=== PATIENT | male | born 1965 | race Caucasian/White ===

== ENCOUNTER 2016-07-09 10:22 | Inpatient (IN) | payer BC ==
[2016-06-18 13:42] VITALS: BMI 25.0
--- NOTE | 2016-06-18 14:19 | PAT Medication Instructions ---
Service Date Jun 18, 2016. Current Home Medication List Acetaminophen (Tylenol), 1,000 MG PO BID Amlodipine (Norvasc), 5 MG PO QAM Fluocinonide Emulsified Base (Fluocinonide-E), 1 DOSE TOP PRN Poyzigqdutkkl-Jbyszzscod-Qnyrb (Marisa [place] Plus Severe 10-12.5-20-650 mg), 1 DOSE PO HS PRN for insulation installer Instructions For Your Scheduled Surgery - Hold the following medications 24 hours prior to surgery: Fluocinonide Emulsified Base (Fluocinonide-E), 1 DOSE TOP PRN - Take the following medications the morning of surgery with a sip of water: Amlodipine (Norvasc), 5 MG PO QAM Acetaminophen (Tylenol), 1,000 MG PO BID - Take the following medications as scheduled the night before surgery: Junmjysbbnajb-Qnfaiewgmv-Dolme (Marisa [place] Plus Severe 10-12.5-20-650 mg), 1 DOSE PO HS PRN for RN Acetaminophen (Tylenol), 1,000 MG PO BID If you have any questions please call us at [phone] or [phone] Jesika ) or [phone]
--- NOTE | 2016-06-18 15:04 | DIAGNOSTIC IMAGING REPORT ---
TWO VIEW CHEST CLINICAL HISTORY: Preoperative examination. FINDINGS: PA and lateral chest radiographs are obtained. No prior studies are available for comparison at the time of dictation. The cardiomediastinal silhouette is unremarkable. The lungs and pleural spaces are clear. There is no pneumothorax. The bony thorax appears intact. IMPRESSION: No active disease in the chest. Electronically signed by: Chucky Ribera M.D. 06/18/2016 3:03 PM Dictated Date/Time: 06/18/2016 3:02 PM
[2016-06-18 15:18] LABS: BASO % 0.6 %; BASO ABS # 0.05 K/uL (0-0.2); COMPLETE YES; EOS % 3.5 %; HEMATOCRIT 43.6 % (42-52); IG% 0.2 %; LYMPH % 22.7 %; LYMPH ABS # 1.86 K/uL (1.2-3.4); MEAN CORPUSCULAR HEMOGLOBIN 31.6 pg (25-34); MEAN CORPUSCULAR HGB CONC 33.9 g/dl (32-36); MEAN PLATELET VOLUME 9.7 fL (7.4-10.4); MONO % 10.3 %; NEUT % 62.7 %; PLATELET COUNT 251 K/uL (130-400); RED BLOOD COUNT 4.69 M/uL (4.7-6.1); WHITE BLOOD COUNT 8.19 K/uL (4.8-10.8)
[2016-06-18 15:25] LABS: INR 0.9 (0.9-1.1); PARTIAL THROMBOPLASTIN RATIO 1.2
[2016-06-18 15:27] LABS: URINE APPEARANCE CLEAR (CLEAR); URINE BILIRUBIN NEG (NEG); URINE COLOR YELLOW; URINE EPITHELIAL CELL AUTO 0-5 /lpf (0-5); URINE NITRITE NEG (NEG); URINE SPECIFIC GRAVITY 1.006 (1.000-1.030); UROBILINOGEN NEG (NEG)
[2016-06-18 15:30] LABS: MANUAL MICROSCOPIC REQUIRED? NO; REVIEW REQ? NO
[2016-06-18 15:34] LABS: BUN/CREATININE RATIO 20.4 (10-20); CALCIUM 9.5 mg/dl (8.5-10.1); CREATININE 0.94 mg/dl (0.60-1.40); POTASSIUM 4.3 mmol/L (3.5-5.1)
[2016-06-19 05:52] LABS: ESTIMATED AVERAGE GLUCOSE 117 mg/dl; HA1C FLAG Normal (Normal)
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
[2016-07-09] VITALS (7 sets, daily range): BP systolic 107–151; BP diastolic 65–98; PULSE 59–72; TEMP 36.6–36.9; O2SAT 94–99; Ht 170.2 cm; Wt 74.6 kg
[~2016-07-09] VITALS: Ht 170.2 cm; Wt 74.6 kg
[2016-07-09] MEDS: TRANEXAMIC ACID INJ 1,000 MG in SODIUM CHLORIDE 0.9% 100ML 100 ML IV SCH ×2 (06:30→12:23)
--- NOTE | 2016-07-09 08:14 | History & Physical Bridge Note ---
H&P Re-Evaluation Bridge Note: I have examined the patient, reviewed the History & Physical and in the interval since the performance of the History & Physical I have noted the following changes of clinical significance: No changes noted
[~2016-07-09 10:22] MED LIST: ACET-1256 PO; ACETAMINOPHEN 500 MG TAB PO SCH; AMLO-110 PO; BACITRACIN 50000 UNIT VIAL ONE; BUPIVACAINE 0.5 % 5 MG/1 ML PF 10ML VIAL ONE; CEFAZOLIN 1000MG/55 ML D5W 55 ML IV SCH; CeleBREX 200 MG CAP PO SCH; DEXAMETHASONE 4 MG TAB PO SCH; FAMOTIDINE 20 MG TAB PO SCH; FLUOCRE TOP; GABAPENTIN 300 MG CAP PO SCH; LACTATED RINGER'S 1000ML 1,000 ML IV SCH; LACTATED RINGER'S 1000ML 500 ML IV ONE; LACTATED RINGER'S 1000ML IV SCH; ORTHO JOINT ANESTHETIC ONE; PHEN1POW90 PO; POVIDONE-IODINE OP SOLN 30 ML BTL ONE; ROPIVACAINE 5MG/ML 30 ML 150 MG, BUPIVACAINE/EPINEPHR 0.5% MPF 30 ML, KETOROLAC TROMETH... INFIL SCH
[2016-07-09] MEDS ORDERED: MIDAZOLAM HCL 1 MG/ML 2ML VIAL ONE (11:21)
[2016-07-09] MEDS ORDERED: ATROPINE SULFATE 0.1 MG/ML 5ML SYR IV PRN (12:30)
[2016-07-09] MEDS ORDERED: EpHEDrine SULFATE INJ 50 MG/ML AMP IV PRN (12:30)
[2016-07-09] MEDS ORDERED: ONDANSETRON INJ 2 MG/ML 2 ML VIAL IV PRN ×2 (12:30→15:30)
[2016-07-09] MEDS ORDERED: FENTANYL CITRATE INJ 50 MCG/1 ML 2 ML VIAL IV PRN (12:30)
[2016-07-09] MEDS ORDERED: PROPOFOL IV EMULSION 10 MG/ML 20 ML VIAL IV ONE (14:36)
--- NOTE | 2016-07-09 14:43 | [facility] Post Operative Brief Note ---
Immediate Operative Summary Operative Date Jul 09, 2016. Pre-Operative Diagnosis Degenerative joint disease left knee with femoral deformity due to fracture Post-Operative Diagnosis Same Procedure(s) Performed Total Left Knee Arthroplasty --cemented Surgeon Dr Mayo Road Driver Surgeon(s) Gt Rios PA-C Estimated Blood Loss 10ML Findings severe djd lt knee Specimens A. Left knee bone and tissue Complication(s) None Disposition Recovery Room / PACU
--- NOTE | 2016-07-09 15:10 | OPERATIVE REPORT ---
DATE OF OPERATION: 07/09/2016 PREOPERATIVE DIAGNOSIS: Severe degenerative joint disease, left knee with femoral deformity from previous fracture. POSTOPERATIVE DIAGNOSIS: Same. PROCEDURE: Left total knee arthroplasty utilizing Journey II patient matched total knee arthroplasty size 4 femur, 5 tibia, 12 poly, 32 oval patella. SURGEON: Dr. Mayo. ADMINISTRATION SPECIALIST: Gt Rios PA-C who was necessary for prepping, draping, retraction, wound closure of deep fascia, subQ and skin and was necessary for the case. ESTIMATED BLOOD LOSS: 10 mL. TOURNIQUET TIME: 50 minutes. COMPLICATIONS: None. HISTORY OF PRESENT ILLNESS: The patient is a very pleasant 50-year-old white male with complaints of ongoing pain attributed to his left knee. He had a previous femur fracture with deformity and has gone on to develop severe end-stage DJD of his knee and presents for left total knee arthroplasty. OPERATION AND FINDINGS: PROCEDURE: The patient was properly prepped and draped in supine position for total knee arthroplasty after identifying the appropriate surgical site. An anterior midline incision was made through the subcutaneous tissues down to the region of the extensor mechanism. A medial parapatellar incision was subsequently made. Meticulous hemostasis was obtained and performed at all times. The patella having been subluxed lateralward, medial and lateral meniscal remnants were excised. The patellar cut was then initially made and was sized to the appropriate size. After subluxing the tibia forward the appropriate meniscal fragments having been removed the distal femur was then cut first utilizing a Khan \T\ Nephew block. The distal femoral cuts and chamfer cuts were all made under direct visualization and the proximal tibial osteotomy cut was also made utilizing Khan \T\ Nephew blocks and checked with an extramedullary guide. The appropriate trial components on the femur and tibia were placed. Appropriate trial spacers were used to check flexion and extension gaps. With flexion and extension gaps being equal, the components were then subsequently after thorough irrigation and debridement lavage components were then subsequently cemented in the following order: femur, tibia and patella. Exparel was used for intraoperative anesthesia, the medial parapatellar incision was closed utilizing #1 Vicryl, subQ was closed with 2-0 Vicryl, skin was closed with skin clips. A sterile compression dressing was placed. The patient was taken to recovery room in stable condition. Due to the complex nature of the procedure, the entire surgery was performed with the operational assistance of Gt Riso PA-C. The dental office assistant, under direct supervision, was involved in the actual performance of all aspects of the surgical procedure including hemostasis, tissue retraction and incision, instrument management, patient positioning, and wound closure. I attest to the content of the Intraoperative Record and any orders documented therein. Any exceptio ns are noted below.
[2016-07-09] MEDS ORDERED: DiphenhydrAMINE HCL 50 MG/ML VIAL IV PRN (15:30)
[2016-07-09] MEDS ORDERED: ZOLPIDEM TARTRATE 5 MG TAB PO PRN (15:30)
[2016-07-09] MEDS ORDERED: MAGNESIUM HYDROXIDE SUSP 30 ML UDC PO PRN (15:30)
[2016-07-09] MEDS ORDERED: TAMSULOSIN HCL 0.4 MG CAP PO PRN (15:30)
[2016-07-09] MEDS ORDERED: BISACODYL 10 MG SUPP PR PRN (15:30)
[2016-07-09] MEDS ORDERED: ALUMINUM/MAGNESIUM/SIMETH (MAALOX MAX) 30 ML UDC PO PRN (15:30)
[2016-07-09] MEDS ORDERED: MoRPHine SULFATE 2 MG/ML CARP IV PRN (15:30)
--- NOTE | 2016-07-09 16:02 | DIAGNOSTIC IMAGING REPORT ---
TWO VIEWS LEFT KNEE CLINICAL HISTORY: Postoperative examination. FINDINGS: AP and crosstable lateral portable views of the left knee are obtained. A left knee arthroplasty is in near anatomic alignment. There has been undersurface remodeling of the patella. No acute fracture is seen. There are expected postoperative changes around the knee including skin clips, a surgical drain, soft tissue edema, and subcutaneous gas. Chronic posttraumatic deformity and angulation is noted in the distal femoral shaft. IMPRESSION: Expected postoperative changes status post left knee arthroplasty. No acute fracture is seen. Electronically signed by: Chucky Ribera M.D. 07/09/2016 4:01 PM Dictated Date/Time: 07/09/2016 4:00 PM
[2016-07-09] MEDS ORDERED: MoRPHine SULFATE 4 MG/ML 1 ML CARP\\VIAL IV PRN (16:15)
[2016-07-09] MEDS ORDERED: MoRPHine SULFATE 10 MG/ML CARP/VIAL IV PRN (16:15)
--- NOTE | 2016-07-09 16:51 | Anesthesiology Progress Note ---
Anesthesia Post Op Note Date & Time Jul 09, 2016 at 16:50 Vital Signs Pain Intensity: 0 Vital Signs Past 12 Hours Date Time Temp Pulse Resp B/P Pulse Ox O2 Delivery O2 Flow Rate FiO2 07/09/16 16:45 110/76 07/09/16 16:43 66 23 98 07/09/16 16:43 65 23 07/09/16 16:40 102/79 07/09/16 16:38 69 18 98 07/09/16 16:38 69 18 07/09/16 16:35 111/81 07/09/16 16:33 79 24 98 07/09/16 16:33 77 24 07/09/16 16:30 107/79 07/09/16 16:28 70 27 07/09/16 16:28 71 27 98 07/09/16 16:25 112/75 07/09/16 16:23 37.0 20 110/76 98 Nasal Cannula 2 07/09/16 16:23 70 18 98 07/09/16 16:23 71 18 07/09/16 16:22 68 21 07/09/16 16:21 74 16 98 07/09/16 16:21 73 16 07/09/16 16:20 99/76 07/09/16 16:16 59 14 98 07/09/16 16:16 60 14 07/09/16 16:15 107/75 07/09/16 16:11 55 14 98 07/09/16 16:11 55 14 07/09/16 16:10 109/77 07/09/16 16:06 61 16 07/09/16 16:06 63 16 97 07/09/16 16:05 103/72 07/09/16 16:01 66 13 07/09/16 16:01 67 13 98 07/09/16 16:00 116/78 07/09/16 15:56 64 15 07/09/16 15:56 62 15 97 07/09/16 15:55 108/77 07/09/16 15:51 77 15 98 07/09/16 15:51 74 15 07/09/16 15:50 113/77 07/09/16 15:46 66 17 07/09/16 15:46 67 17 98 07/09/16 15:45 112/80 07/09/16 15:41 61 19 99 07/09/16 15:41 60 19 3/1/17 15:40 112/75 07/09/16 15:36 69 17 07/09/16 15:36 70 17 97 07/09/16 15:35 67 21 115/78 97 07/09/16 15:35 68 21 07/09/16 15:30 85 20 114/86 95 07/09/16 15:30 84 20 07/09/16 15:25 86 12 114/77 98 07/09/16 15:25 86 12 07/09/16 15:20 91 18 117/81 97 07/09/16 15:20 89 18 07/09/16 15:16 117/73 07/09/16 15:15 86 12 95 07/09/16 15:15 86 12 07/09/16 15:15 36.4 80 20 117/73 97 Nasal Cannula 2 07/09/16 10:32 36.6 69 20 151/98 96 Room Air Notes Mental Status: alert / awake / arousable, participated in evaluation Pt Amnestic to Procedure: Yes Nausea / Vomiting: adequately controlled Pain: adequately controlled Airway Patency, RR, SpO2: stable & adequate BP & HR: stable & adequate Hydration State: stable & adequate Neuraxial Anesthesia: was administered, sensory block is resolving Anesthetic Complications: no major complications apparent
[2016-07-09] MEDS: D5W AND 1/2NSS + 20MEQ KCL 1,000 ML IV SCH (18:16)
[2016-07-09] MEDS: FERROUS GLUCONATE 324 MG TAB PO SCH (18:17)
[2016-07-09] MEDS: KETOROLAC TROMETHAMINE 30 MG/ML VIAL IV. SCH ×2 (18:17→23:29)
[2016-07-09] MEDS: DOCUSATE SODIUM 100 MG CAP PO SCH (21:15)
[2016-07-09] MEDS: ASPIRIN 81 MG ECTAB PO SCH (21:15)
[2016-07-09] MEDS: OXYCODONE HCL 10 MG TABCR (OXYCONTIN) PO SCH (21:15)
[2016-07-09] MEDS: SENNA 8.6 MG TAB PO SCH (21:16)
[2016-07-09] MEDS: ACETAMINOPHEN 500 MG TAB PO SCH (21:16)
[2016-07-09] MEDS: CEFAZOLIN IV 1,000 MG in DEXTROSE 5% 50ML 50 ML IV SCH (21:16)
[2016-07-10 03:30] VITALS: BP 105/69; PULSE 61; TEMP 36.6; O2SAT 93
[2016-07-10] MEDS: D5W AND 1/2NSS + 20MEQ KCL 1,000 ML IV SCH ×2 (03:50→14:00)
[2016-07-10] MEDS: CEFAZOLIN IV 1,000 MG in DEXTROSE 5% 50ML 50 ML IV SCH (05:37)
[2016-07-10] MEDS: KETOROLAC TROMETHAMINE 30 MG/ML VIAL IV. SCH ×2 (05:37→12:29)
[2016-07-10] MEDS: ACETAMINOPHEN 500 MG TAB PO SCH ×3 (05:37→20:48)
[2016-07-10 06:54] LABS: HEMATOCRIT 35.8 % (42-52); MEAN CELL VOLUME 92.3 fL (80-100); MEAN CORPUSCULAR HEMOGLOBIN 30.7 pg (25-34); MEAN CORPUSCULAR HGB CONC 33.2 g/dl (32-36); PLATELET COUNT 281 K/uL (130-400); RED BLOOD COUNT 3.88 M/uL (4.7-6.1); WHITE BLOOD COUNT 12.83 K/uL (4.8-10.8)
[2016-07-10 06:57] LABS: BUN/CREATININE RATIO 13.1 (10-20); CALCIUM 8.6 mg/dl (8.5-10.1); CREATININE 0.99 mg/dl (0.60-1.40); POTASSIUM 4.3 mmol/L (3.5-5.1)
--- NOTE | 2016-07-10 07:20 | Orthopedic Progress Note ---
Orthopedic Progress Note Date of Service Jul 10, 2016. Subjective Post OP Day: 1 Reports: feeling well, pain controlled w PO medications, Denies: SOB, calf pain , chest pain, complaints, light headedness, nausea / vomiting Objective calves soft nontender, N/V intact, capillary refill less than 2 sec., dressing C /D/I, A&O x3, toes mobile, hemovac drainage (150cc/8 hours) Date Time Temp Pulse Resp B/P Pulse Ox O2 Delivery O2 Flow Rate FiO2 07/10/16 03:30 36.6 61 16 105/69 93 Room Air 07/09/16 22:58 36.8 63 16 126/81 94 Room Air 07/09/16 20:24 36.6 59 16 127/78 97 Room Air 07/09/16 19:20 Room Air 07/09/16 19:13 36.6 70 18 130/78 99 Nasal Cannula 2.0 07/09/16 18:18 36.7 63 18 115/77 98 Nasal Cannula 2.0 07/09/16 17:49 36.6 65 16 114/74 99 Nasal Cannula 2.0 07/09/16 17:15 36.9 72 16 107/65 96 Nasal Cannula 2.0 07/09/16 17:15 96 Nasal Cannula 2.0 07/09/16 17:15 Nasal Cannula 2.0 07/09/16 16:45 110/76 07/09/16 16:43 66 23 98 07/09/16 16:43 65 23 07/09/16 16:40 102/79 07/09/16 16:38 69 18 98 07/09/16 16:38 69 18 07/09/16 16:35 111/81 07/09/16 16:33 79 24 98 07/09/16 16:33 77 24 07/09/16 16:30 107/79 07/09/16 16:28 70 27 07/09/16 16:28 71 27 98 07/09/16 16:25 112/75 07/09/16 16:23 37.0 20 110/76 98 Nasal Cannula 2 07/09/16 16:23 70 18 98 07/09/16 16:23 71 18 07/09/16 16:22 68 21 07/09/16 16:21 74 16 98 07/09/16 16:21 73 16 07/09/16 16:20 99/76 07/09/16 16:16 59 14 98 07/09/16 16:16 60 14 07/09/16 16:15 107/75 07/09/16 16:11 55 14 98 07/09/16 16:11 55 14 07/09/16 16:10 109/77 07/09/16 16:06 61 16 07/09/16 16:06 63 16 97 07/09/16 16:05 103/72 07/09/16 16:01 66 13 07/09/16 16:01 67 13 98 07/09/16 16:00 116/78 07/09/16 15:56 64 15 07/09/16 15:56 62 15 97 07/09/16 15:55 108/77 07/09/16 15:51 77 15 98 07/09/16 15:51 74 15 07/09/16 15:50 113/77 07/09/16 15:46 66 17 07/09/16 15:46 67 17 98 07/09/16 15:45 112/80 07/09/16 15:41 61 19 99 07/09/16 15:41 60 19 07/09/16 15:40 112/75 07/09/16 15:36 69 17 07/09/16 15:36 70 17 97 07/09/16 15:35 67 21 115/78 97 07/09/16 15:35 68 21 07/09/16 15:30 85 20 114/86 95 07/09/16 15:30 84 20 07/09/16 15:25 86 12 114/77 98 07/09/16 15:25 86 12 07/09/16 15:20 91 18 117/81 97 07/09/16 15:20 89 18 07/09/16 15:16 117/73 07/09/16 15:15 86 12 95 07/09/16 15:15 86 12 07/09/16 15:15 36.4 80 20 117/73 97 Nasal Cannula 2 07/09/16 10:32 36.6 69 20 151/98 96 Room Air Laboratory Results 24 Hours: Test 07/10/16 05:32 Hematocrit 35.8 % Hemoglobin 11.9 g/dL Assessment & Plan Assessment: POD #1 s/p Left TKA -PT/OT -dvt proph with loretta/scd/asa 1. Hypertension 2. sleep apnea
[2016-07-10 07:35] VITALS: BP 106/71; PULSE 59; TEMP 36.6; O2SAT 95
[2016-07-10] MEDS: MULTIVITAMIN TAB PO SCH (08:53)
[2016-07-10] MEDS: ASPIRIN 81 MG ECTAB PO SCH ×2 (08:53→20:49)
[2016-07-10] MEDS: DOCUSATE SODIUM 100 MG CAP PO SCH ×2 (08:53→20:48)
[2016-07-10] MEDS: PANTOprazole SOD 40 MG TAB PO SCH (08:53)
[2016-07-10] MEDS: AMLODIPINE BESYLATE 5 MG TAB PO SCH (08:53)
[2016-07-10] MEDS: FERROUS GLUCONATE 324 MG TAB PO SCH ×3 (08:53→17:23)
[2016-07-10] MEDS: OXYCODONE HCL IR 5 MG TAB (IMMEDIATE RELEASE) PO PRN ×3 (08:56→20:49)
[2016-07-10] MEDS: OXYCODONE HCL 10 MG TABCR (OXYCONTIN) PO SCH ×2 (08:56→20:49)
--- NOTE | 2016-07-10 14:46 | Discharge Instructions ---
Discharge Instructions Admission Reason for Admission: Left Knee Osteoarthritis Discharge Discharge Diagnosis / Problem: left total knee replacement Discharge Goals Goal(s): Decrease discomfort, Improve function, Increase independence Activity Recommendations Activity Limitations: as noted below Weightbearing Status: Left weightbearing (as tolerated) . Instructions / Follow-Up Instructions / Follow-Up ACTIVITY RECOMMENDATIONS: SELF CARE INSTRUCTIONS AFTER TOTAL KNEE REPLACEMENT A. You may need to continue a physical therapy program after discharge from the hospital. There are several options available to you. Your doctor will assist you in selecting the best one for you. 1. An out-patient facility 2 to 3 times a week for therapy or home therapy. 2. Continue working on all exercises taught to you in the hospital. Your goals should be to increase bending of your knee to 90 degrees and beyond and to fully straighten your knee. B. You may progress at your own pace from walking with a walker or crutches to a cane; then to no assistive devices. C. Make walking a part of your daily routine. Be up as much as comfortable with rest periods throughout the day. Rest with leg elevation is very important. Use the ice wrap frequently for the first 3-4 weeks. D. There are no restrictions on activities. You may ride in a car, shop, participate in esthetician/spa coordinator and all social activities. E. Wear the long elastic stockings (JEREMY hose) 20 hours a day for 2 weeks after surgery. They can be removed several times a day for laundering and for a bath. F. You may shower, no tub baths until cleared by your doctor. SPECIAL CARE INSTRUCTIONS: VERY IMPORTANT TO READ AND REVIEW A. There are a few signs you need to watch for after you are home. Call [facility] if you notice any of the followin. Increased severe knee pain. Some pain is expected especially when you exercise. 2. Increased swelling in your leg or knee; pain or swelling of the calf muscle in either lower leg. 3. Any fluid drainage from the incision. 4. Shortness of breath or chest pain. B. Please call [facility] at if you have any concerns or questions about your operation or recovery. The doctor or his nurse will return your call promptly. C. You must take antibiotics before dental work, bladder, bowel or other surgery. Your doctor will provide you with a permanent care to carry describing this precaution. IMPORTANT: * REMEMBER TO TAKE ASPIRIN, 81 MG, TWICE DAILY FOR 4 WEEKS UNLESS OTHERWISE DIRECTED. THIS IS YOUR BLOOD THINNER. * HIGH RISK PATIENTS MAY BE PRESCRIBED A STRONGER BLOOD THINNER. THIS WILL BE PROVIDED AT DISCHARGE. * CALL IF INCREASED PAIN, REDNESS, DRAINAGE OR FEVER GREATER THAT 101. * WEAR JEREMY HOSE 20 HOURS PER DAY FOR 2 WEEKS. * YOU MAY HAVE A LARGE BAND-AID LIKE DRESSING (SILVERON). THIS WILL REMAIN ON YOUR INCISION FOR 7 DAYS, THEN CAN BE REMOVED. IF INCISION IS LEAKING THROUGH DRESSING, CALL THE OFFICE . FOLLOW UP VISIT: If appointment is not already scheduled: Please call [facility] to make a follow-up appointment for 2 weeks after your surgery at . Current Hospital Diet Patient's current hospital diet: Regular Diet Discharge Diet Recommended Diet: Regular Diet Procedures Procedures Performed: Total Left Knee Arthroplasty --cemented Pending Studies Studies pending at discharge: no Laboratory Results Hemoglobin A1c Test 06/18/16 14:34 Range/Units Estimated Average Glucose 117 mg/dl Hemoglobin A1c 5.7 H 4.5-5.6 % Medical Emergencies . Who to Call and When: Medical Emergencies: If at any time you feel your situation is an emergency, please call [phone] immediately. . Non-Emergent Contact Non-Emergency issues call your: Primary Care Provider, Surgeon . "Provider Documentation" section prepared by Chu Woo. VTE Core Measure Inpt VTE Proph given/why not?: Other Anticoagulation (ASA 81mg po bid x 1 month ), T.E.D. Stockings, SCD's [place] Drug Monitoring Program Search Results: patient reviewed within database, no issues identified
[2016-07-10 15:20] VITALS: BP 120/71; PULSE 69; TEMP 36.5; O2SAT 96
[2016-07-10] MEDS: SENNA 8.6 MG TAB PO SCH (20:49)
[2016-07-10 23:25] VITALS: BP 101/75; PULSE 64; TEMP 36.6; O2SAT 95
[2016-07-11] MEDS: ACETAMINOPHEN 500 MG TAB PO SCH (05:28)
[2016-07-11 06:01] VITALS: BP 118/82; PULSE 57; TEMP 36.6; O2SAT 96
--- NOTE | 2016-07-11 07:11 | Orthopedic Progress Note ---
Orthopedic Progress Note Date of Service Jul 11, 2016. Subjective Post OP Day: 2 Reports: feeling well, pain controlled w PO medications, Denies: SOB, calf pain , chest pain, complaints, light headedness, nausea / vomiting Objective calves soft nontender, N/V intact, capillary refill less than 2 sec., dressing C /D/I (prevena intact), A&O x3, toes mobile Date Time Temp Pulse Resp B/P Pulse Ox O2 Delivery O2 Flow Rate FiO2 07/11/16 06:01 36.6 57 16 118/82 96 Room Air 07/10/16 23:25 36.6 64 16 101/75 95 Room Air 07/10/16 19:35 Room Air 07/10/16 15:20 36.5 69 18 120/71 96 Room Air 07/10/16 07:35 36.6 59 16 106/71 95 Room Air 07/10/16 07:20 Room Air Assessment & Plan Assessment: POD #2 s/p Left TKA -PT/OT -dvt proph with loretta/scd/asa -prevena intact 1. Hypertension 2. sleep apnea Discharge Planning Discharge Planning: home with home health DVT Prophylaxis: TEDs, SCDs, ASA Therapy: Physical Therapy
[2016-07-11] MEDS ORDERED: ASPEC81 PO (07:14)
[2016-07-11] MEDS ORDERED: ONDA8TAB6 PO (07:14)
[2016-07-11] MEDS ORDERED: OXYSR10 PO (07:14)
[2016-07-11] MEDS ORDERED: ACET-1138 PO (07:14)
[2016-07-11] MEDS ORDERED: RXC5 PO (07:14)
[2016-07-11] MEDS ORDERED: CLC100 PO (07:14)
[2016-07-11] MEDS ORDERED: CLB200 PO (07:18)
[2016-07-11] MEDS: OXYCODONE HCL IR 5 MG TAB (IMMEDIATE RELEASE) PO PRN (08:16)
[2016-07-11] MEDS: OXYCODONE HCL 10 MG TABCR (OXYCONTIN) PO SCH (08:16)
[2016-07-11] MEDS: DOCUSATE SODIUM 100 MG CAP PO SCH (08:17)
[2016-07-11] MEDS: MULTIVITAMIN TAB PO SCH (08:18)
[2016-07-11] MEDS: PANTOprazole SOD 40 MG TAB PO SCH (08:18)
[2016-07-11] MEDS: AMLODIPINE BESYLATE 5 MG TAB PO SCH (08:18)
[2016-07-11] MEDS: ASPIRIN 81 MG ECTAB PO SCH (08:18)
[2016-07-11] MEDS: FERROUS GLUCONATE 324 MG TAB PO SCH (08:18)
[2016-07-11 10:08] VITALS: O2SAT 97
[2016-07-11 10:39] VITALS: BP 118/82; PULSE 57; TEMP 36.6; O2SAT 97
--- NOTE | 2016-07-15 17:58 | DISCHARGE SUMMARY ---
DISCHARGE DIAGNOSIS: Degenerative joint disease, left knee. SECONDARY DIAGNOSES: Hypertension and sleep apnea. CONSULTATIONS: None. COMPLICATIONS: None. PROCEDURES: Left total knee arthroplasty performed by Dr. Mayo on 07/09/2016. BRIEF HISTORY OF PRESENT ILLNESS: As dictated in the history and physical. HOSPITAL SUMMARY: The patient was admitted on the above date and had the above-noted surgery performed which he tolerated well. On his first postoperative day, he was feeling well and pain was controlled. He had no complaints. Calves were soft, nontender, neurovascularly intact. His dressings were clean, dry and intact. Toes were mobile. Vital signs were stable. He was afebrile. Hemoglobin was 11.9 and he was started on physical therapy protocol and continued on DVT prophylaxis and pain management. By his second postoperative day, he was feeling well. Pain was controlled and he was progressing with his physical therapy. Vital signs were stable and it was felt that he could be discharged to home with home health services. For further review, please see chart. LABORATORY AND X-RAY DATA: As per chart. DISCHARGE INSTRUCTIONS: The patient was discharged to home in satisfactory condition on 07/11/2016. DIET: Regular. ACTIVITY: Follow TKA instruction sheets and special care instructions as noted, weightbearing as tolerated left lower extremity. Follow up with Dr. Mayo in 2 weeks. The patient to call for appointment if one has not been made for you. DISCHARGE MEDICATIONS: Acetaminophen 1000 mg p.o. q. 8 hours, aspirin 81 mg p.o. b.i.d., Celebrex 200 mg p.o. b.i.d., Colace 100 mg p.o. b.i.d., Zofran 8 mg p.o. q. 8 hours p.r.n., OxyContin 10 mg p.o. q. 12 hours, oxycodone 5-10 mg p.o. q. 4 hours p.r.n., resume taking amlodipine 5 mg p.o. q.a.m., fluocinonide 0.05% cream one dose topically p.r.n.
== END 2016-07-11 11:25 | disposition home health service (06) | DRG 470 ==
LOC: ENRESERVTM → ENRESERVDT → C.ACU 10:22 → C.3E 12:30
PROVIDERS: ADMIT Orthopaedic Surgery; ATTEND Orthopaedic Surgery
PROC: 0SRD0J9 Replacement of Left Knee Joint with Synthetic Substitute, Cemented, Open Approach (ICD-10-PCS; principal; 2016-07-09 12:45)
DX: M17.32 Unilateral post-traumatic osteoarthritis, left knee (principal); M21.962 Unspecified acquired deformity of left lower leg; S72.92XS Unspecified fracture of left femur, sequela; X58.XXXS Exposure to other specified factors, sequela; I10 Essential (primary) hypertension; G47.30 Sleep apnea, unspecified; Z87.891 Personal history of nicotine dependence; Z79.899 Other long term (current) drug therapy